=== PATIENT | male | born 1985 | race Caucasian/White ===

== ENCOUNTER → 2018-10-04 12:03 | Outpatient (CLI) | payer OTHER, BC, SELFPAY | PROVIDERS: PCP Internal Medicine Adolescent Medicine; Visit Provider Nurse Practitioner Family | DX: Z02.4 Encounter for examination for driving license (principal) ==

== ENCOUNTER → 2018-10-05 09:43 | Outpatient (CLI) | payer SELFPAY | PROVIDERS: Visit Provider Physician Assistant ==

== ENCOUNTER → 2019-08-29 08:12 | Outpatient (CLI) | payer BC, SELFPAY ==
[2019-08-29 08:57] LABS: Basophils % 0.7 % (0.1-2.0); Eosinophils # 0.2 K/mm3 (0.0-0.4); Eosinophils % 4.9 % (0.1-12.0); Hematocrit 45.1 % (42.0-52.0); Hemoglobin 15.2 g/dL (14.1-18.0); Lymphocytes # 1.2 K/mm3 (0.7-4.5); Lymphocytes % 26.9 % (10-50); Mean Corpuscular HGB Conc 33.7 g/dL (31.8-35.4); Mean Corpuscular Hemoglobin 30.5 pg (27.0-31.2); Mean Corpuscular Volume 90.6 fl (80-94); Mean Platelet Volume 7.7 fl (7.4-10.4); Monocytes # 0.3 K/mm3 (0.1-1.0); Monocytes % 7.5 % (1.7-9.3); Neutrophils # 2.8 K/mm3 (1.8-7.8); Neutrophils % 60.1 % (37.0-80.0); Platelet Count 262 K/mm3 (142-424); Red Blood Count 4.97 M/mm3 (4.60-6.20); White Blood Count 4.6 K/mm3 (4.8-10.8)
[2019-08-29 09:07] LABS: Hemoglobin A1C 5.8 % (0.0-7.0)
[2019-08-29 09:30] LABS: Alanine Aminotransferase 56 U/L (12-78); Albumin Level 4.2 gm/dL (3.4-5.0); Albumin/Globulin Ratio 1.2 (1.1-1.8); Alkaline Phosphatase 97 U/L (46-116); Anion Gap 9.1 mEq/L (5-15); Aspartate Amino Transferase 32 U/L (15-37); Bilirubin,Total 0.4 mg/dL (0.2-1.0); Blood Urea Nitrogen 10 mg/dL (7-18); Carbon Dioxide 28 mmol/L (21.0-32.0); Chloride 104 mmol/L (98-107); Chol/HDL Ratio 5.9 (1-3.5); Cholesterol 202 mg/dL (140-200); Creatinine,Serum 1.07 mg/dL (0.70-1.30); Estimated Glomerular Filt Rate 80 ml/min (>60); GFR (African American) 96 ML/MIN (>60); Globulin 3.4 gm/dl (1.3-3.2); Glucose 105 mg/dL (74-106); HDL Cholesterol 34 mg/dL (27-67); LDL Cholesterol 140 mg/dL (0-130); Potassium 4.1 mmoL/L (3.5-5.1); Sodium 137 mmol/L (136-145); Thyroid Stimulating Hormone 0.87 uIU/ml (0.358-3.740); Total Protein,Serum 7.6 gm/dL (6.4-8.2); Triglycerides 138 mg/dL (30-200); Uric Acid 6.4 mg/dL (2.6-7.2); VLDL Cholesterol 28 mg/dL (0-40)
[2019-08-29 09:31] LABS: C-Reactive Protein < 0.2 mg/dL (0.0-0.9)
[2019-08-29 09:48] LABS: Erythrocyte Sedimentation Rate 10 mm/hr (0-15)
[2019-08-30 18:13] LABS: RA Latex Turbid. <10.0 IU/mL (0.0-13.9)
[2019-08-31 21:50] LABS: Anti-Cyclic Citrullinated Pept 13 units (0-19)
[2019-09-01 13:56] LABS: Antinuclear Antibodies, IFA Positive (.)
== END ==
PROVIDERS: Visit Provider Nurse Practitioner Family
DX: I10 Essential (primary) hypertension (principal); R63.5 Abnormal weight gain; M25.542 Pain in joints of left hand
CPT/HCPCS: 36415; 80053; 80061; 83036; 84443; 84550; 85025; 85651; 86038; 86140; 86200; 86431

== ENCOUNTER → 2020-08-13 10:59 | Outpatient (CLI) | payer BC, SELFPAY ==
--- NOTE | 2020-08-13 11:08 | MR_ITS ---
PROCEDURE: MR LUMBAR SPINE WO CON CLINICAL INDICATION: LUMBAR PAIN Low back pain with tingling and numbness down left leg COMPARISON: MR MANUFA[employer]ING [employer]PERVIS[employer] 2ND SHIFT/O MRI-L-SPINE W/O from 10/30/2014 CT ABDPELW/O CT ABD PELVIS W/O CONTRAST from 09/14/2015 TECHNIQUE: Standard multiplanar multiecho sequences are performed without contrast. 3-D MIP and myelographic images are also rendered and reviewed FINDINGS: There is normal alignment. The spinal cord ends at the L1-L2 level. L1-L2 has an unremarkable appearance. L2-L3 and L3-L4 show mild facet and ligamentum hypertrophy. L4-5: There is minimal bulging disc slightly eccentric toward the left along with facet and ligamentum hypertrophy with mild left lateral recess and foraminal narrowing not significantly changed. L5-S1: There is a small left paracentral disc protrusion versus small disc osteophyte complex. This is causing left-sided lateral recess narrowing and is impinging upon the left S1 nerve root and has enlarged since the previous exam. IMPRESSION: 1. L4-5: There is minimal bulging disc slightly eccentric toward the left along with facet and ligamentum hypertrophy with mild left lateral recess and foraminal narrowing not significantly changed. 2. L5-S1: There is a small left paracentral disc protrusion versus small disc osteophyte complex. This is causing left-sided lateral recess narrowing and is impinging upon the left S1 nerve root and has enlarged since the previous exam Dictated by: Piotr Thompson MD 08/14/2020 12:57 Piotr Thompson MD in [place] 08/14/2020 12:57
== END ==
PROVIDERS: PCP Internal Medicine Adolescent Medicine; Visit Provider Orthopaedic Surgery
DX: M54.5 Low back pain (principal)
CPT/HCPCS: 72148; 76376

== ENCOUNTER 2020-08-22 15:37 | Emergency (ER) | payer BC, SELFPAY ==
[2020-08-22 15:45] VITALS: BP 141/105; PULSE 96; RESP 20; TEMP 37; O2SAT 97; BMI 33.1
--- NOTE | 2020-08-22 16:11 | HMH.EDUTC ---
[facility] [place] Disposition Clinical Impression: Left chest pressure Disposition: Still a Patient Condition on Discharge: Good Additional Instructions: sent to ed for eval report to earl Referrals: Sawyer Oh MD [Primary Care Provider] - Time of Disposition: 16:18 Medical Decision Making - Wan Inquiry Pt receiving controlled substance: No Vital Signs: 08/22/20 15:45 Temperature 98.6 F Temperature Source Oral Pulse Rate [Right Brachial] 96 H Respiratory Rate 20 Blood Pressure [Right Arm] 141/105 H Blood Pressure Mean [Right Arm] 117 Blood Pressure Source [Right Arm] Automatic Cuff Blood Pressure Position [Right Arm] Sitting 02 Sat by Pulse Oximetry 97 Oxygen Delivery Method Room Air [facility] [place] HPI - General Chief complaint: Urgent Treatment Center Stated complaint: Hurts all over,fever,cough Time Seen by Provider: 08/22/20 16:11 Mode of Arrival: Ambulatory Source of Information: Patient Limitations: No Limitations Description of Symptoms (Recalled from Triage Doc. by RN): PATIENT C/O BODY ACHES, NAUSEA, CHEST CONGESTION, COUGH, SOA, VOMITING AND FEVER THAT STARTED APPROX 0400 THIS AM. HEENT Symptoms (Recalled from RN notes): Yes Resp Symptoms (Recalled from RN notes): Yes Skin Symptoms (Recalled from RN notes): No MS Symptoms (Recalled from RN notes): Yes Functional Status (Recalled from RN notes): WNL - History of Present Illness Provider Complaint: 35 yr old male presents for soa, vomiting, feels someone or thing is pushing in on the left side of his chest not letting him breath that is worse if he gets up and moves around. Pt states he woke up at 4 am with aching all over and then layed back down and got up at 10 with the aches and felling bad, pt states he thought he needed to get something to eat and came to town to eat. On the way back home he began to sweat heavy and had to door puller to throw up. 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 Pt states when he got home he continued to feel bad and decided to come get checked out. Pt states no chest pain just pressure on the left side that makes him feel he cant take a breath. - Related Data Home Medications Medication Instructions Recorded Confirmed fluoxetine 10 mg capsule 10 mg PO DAILY #30 cap 09/25/19 08/22/20 meloxicam 7.5 mg tablet 7.5 mg PO DAILY #30 tab 09/25/19 08/22/20 propranolol 20 mg tablet 20 mg PO DAILY #90 tab 09/25/19 08/22/20 Gabapentin [Gabapentin 300mg Cap] 300 mg PO BID 08/22/20 08/22/20 Allergies Allergy/AdvReac Type Severity Reaction Status Date / Time amoxicillin [AMOXICILLIN] Allergy Mild Verified 08/22/20 15:59 - Worker's Comp Is this a Worker's Comp case?: No [facility] History - Hepatitis A Screen Drug use history?: No High risk sexual behaviors?: No History of sexually transmitted infection?: No Currently employed?: No Childcare worker?: No Do you have indoor plumbing?: Yes Do you have electricity?: Yes Attestation statement:: This patient has been screened for Hepatitis A risk factors. I have reviewed the patient's past medical history: Yes Other Surgeries: Yes: Appendectomy, Cholecystectomy Amputation: No Fractures: No Comment: Jaw, finger - Social History Smoking Status: Never smoker Alcohol Intake: never Substance Use Type: denies use Occupational Status: other Family Hx:: No significant family history ROS Obtained: Yes Systems reviewed as appropriate & no additional complaints - Constitutional Constitutional: Reports system reviewed and no additional complaints, except as docu, Reports body ache, Reports fatigue, Reports fever(s) - Eyes Eyes: Reports system reviewed and no additional complaints, except as docu, Reports itchy eyes - ENT Ears, Nose, Mouth, and Throat: Reports system reviewed and no additional complaints, except as docu, Denies nasal discharge, Denies sore throat - [facility]
[2020-08-22 16:15] VITALS: BP 160/112; PULSE 91; RESP 16; TEMP 37.4; O2SAT 97; BMI 33.1
--- NOTE | 2020-08-22 16:23 | HMH.EDGENADL ---
ED Disposition Clinical Impression: Viral upper respiratory infection, Atypical chest pain Disposition: Home, Self-Care Condition on Discharge: Good Instructions: DI for Viral Upper Respiratory Infection -- Adult, DI for Atypical Chest Pain Additional Instructions: Call back to the emergency department in 4 hrs to obtain your COVID-19 test result. Quarantine yourself until you obtain your result. Tylenol or ibuprofen for discomfort and fever. Additional instructions for UPPER RESPIRATORY INFECTION: See your physician if not improving in 3-4 days or if worsening. Rest and drink plenty of fluids. Return immediately if you have an uncontrollable fever greater than 104 degrees, difficulty breathing or shortness of breath, persistent vomiting, or inability to swallow. Referrals: Sawyer Oh MD [Primary Care Provider] - - Critical Care Critical Care Time: No Attestation: On 08/22/20, the high probability of a clinically significant, sudden or life threatening deterioration of the following system(s) required my full and direct attention, intervention and personal management. The time I documented below is in addition to time spent performing reported procedures but includes the following listed in this critical care notation. Medical Decision Making - Wan Inquiry Pt receiving controlled substance: No Vital Signs: 08/22/20 15:45 08/22/20 16:15 Temperature 98.6 F 99.3 F Temperature Source Oral Oral Pulse Rate [Right Brachial] 96 H 91 H Respiratory Rate 20 16 Blood Pressure [Right Arm] 141/105 H 160/112 H Blood Pressure Mean [Right Arm] 117 128 Blood Pressure Source [Right Arm] Automatic Cuff Automatic Cuff Blood Pressure Position [Right Arm] Sitting Sitting 02 Sat by Pulse Oximetry 97 97 Oxygen Delivery Method Room Air Room Air - Lab Data Lab Results 08/22/20 16:33: WBC 5.1, RBC 5.28, Hgb 16.2, Hct 48.3, MCV 91.5, MCH 30.7, MCHC 33.6, RDW 13.3, Plt Count 212, MPV 8.3, Neut % (Auto) 75.3, Lymph % (Auto) 11.7, [place] % (Auto) 9.8 H, Eos % (Auto) 2.5, Baso % (Auto) 0.7, Neut # (Auto) 3.9, Lymph # (Auto) 0.6 L, [place] # (Auto) 0.5, Eos # (Auto) 0.1, Baso # (Auto) 0.0 08/22/20 16:33: Sodium 137, Potassium 4.1, Chloride 101, Carbon Dioxide 27, Anion Gap 13.1, BUN 16, Creatinine 1.00, Estimated Creat Clear 146, Estimated GFR 86, Est GFR ( Amer) 103, Glucose 99, Calcium 9.6, Total Bilirubin 0.4, Direct Bilirubin 0.1, Conjugated Bilirubin 0.0, Indirect Bilirubin 0.3, Unconjugated Bilirubin 0.2, AST 51, ALT 77, Alkaline Phosphatase 76, Troponin I < 0.01, Total Protein 8.2, Albumin 4.9, Amylase 50, Lipase 109 Result diagrams: 08/22/20 16:33 08/22/20 16:33 Orders (Tests/Meds): ORDERS Category Date Time Status Chest XR 2 view (NOT portable) [XR chest 2V] Stat Exams 08/22/20 16:26 Taken Full Resp Panel w/COVID ([facility]) Routine Lab 08/22/20 17:23 Ordered Troponin I Q3H Lab 08/22/20 19:30 Ordered Troponin I Q3H Lab 08/22/20 22:30 Ordered - ECG Data Tracing #1 EKG interpreted by Florian Bailey MD: Rhythm: sinus Rate: 87 [place]: normal Ectopy: none Conduction: normal ST Segment Changes: none T Wave Changes: none Q Waves: none No evidence of acute ischemia or injury Normal electrocardiogram - MATT Score for Non-Stemi Age of Patient: 30-39 years old Heart Rate: 90-109 bpm Systolic Blood Pressure: 140-159 mmHg Serum Creatinine: 0.80-1.19 mg/dl CHF [place] Class: I-No CHF Other Risk Factors: None Non-Stemi Risk Score: 54 General Adult HPI - General Chief complaint: Urgent Treatment Center Stated complaint: Hurts all over,fever,cough Time Seen by Provider: 08/22/20 16:11 Mode of Arrival: Ambulatory Source of Information: Patient Limitations: No Limitations Description of Symptoms (Recalled from ER Triage Doc. by RN): PATIENT C/O BODY ACHES, NAUSEA, CHEST CONGESTION, COUGH, SOA, VOMITING AND FEVER THAT STARTED APPROX 0400 THIS AM. - History of Present Illness HPI narrative:
--- NOTE | 2020-08-22 16:26 | ECG_ITS ---
APPROVED REPORT Exam: Resting ECG HR:87 bpm ECG Measurements Heart Rate 87 AXES MA 144 P 55 QRSd 82 QRS 33 QT 342 T 26 QTc 411 Conclusion Normal sinus rhythm Normal ECG Electronically signed by : Kevin Camilo, 08/24/2020 17:32:36
--- NOTE | 2020-08-22 16:26 | XR_ITS ---
PROCEDURE: XR CHEST 2V Referring Doctor: Florian Bailey Patient Age:35Y CLINICAL HISTORY: pain under L breast area chest pain COMPARISON: CR CXR CHEST(2 VIEWS-NOT PORTABLE) from 06/09/2016 FINDINGS: Today's PA and lateral chest is compared to 06/09/2016 two-view CXR. No interval change. No acute findings The lungs are well expanded and clear with no active disease. No pneumothorax no pleural effusion. No infiltrate. No mass lesion or pulmonary nodule. Chest wall and T-spine appear stable and intact. The heart is normal in size with normal pulmonary vascularity. [place] and mediastinal structures appears satisfactory and stable. Clips right upper quadrant likely from prior cholecystectomy Cardiomediastinal silhouette and pulmonary vascularity are within normal limits. The lungs are clear without infiltrates, suspicious nodules, or pleural effusions. No acute bony abnormalities. IMPRESSION: No acute findings. Lungs clear. Stable chest Dictated by: Ricky Morin MD 08/22/2020 22:50 Ricky Morin MD in [place] 08/22/2020 22:50
--- NOTE | 2020-08-22 16:36 | PC.NURSE ---
pt to xray
[2020-08-22 16:49] LABS: Basophils % 0.7 % (0.1-2.0); Eosinophils # 0.1 K/mm3 (0.0-0.4); Eosinophils % 2.5 % (0.1-12.0); Hematocrit 48.3 % (42.0-52.0); Hemoglobin 16.2 g/dL (14.1-18.0); Lymphocytes # 0.6 K/mm3 (0.7-4.5); Lymphocytes % 11.7 % (10-50); Mean Corpuscular HGB Conc 33.6 g/dL (31.8-35.4); Mean Corpuscular Hemoglobin 30.7 pg (27.0-31.2); Mean Corpuscular Volume 91.5 fl (80-94); Mean Platelet Volume 8.3 fl (7.4-10.4); Monocytes # 0.5 K/mm3 (0.1-1.0); Monocytes % 9.8 % (1.7-9.3); Neutrophils # 3.9 K/mm3 (1.8-7.8); Neutrophils % 75.3 % (37.0-80.0); Platelet Count 212 K/mm3 (142-424); Red Blood Count 5.28 M/mm3 (4.60-6.20); Red Cell Distribution Width 13.3 % (11.5-17.5); White Blood Count 5.1 K/mm3 (4.8-10.8)
[2020-08-22 16:55] LABS: Chloride 101 mmol/L (98-107); Sodium 137 mmol/L (136-145)
[2020-08-22 16:56] LABS: Potassium 4.1 mmoL/L (3.5-5.1)
[2020-08-22 16:58] LABS: Amylase 50 U/L (30-110); Anion Gap 13.1 mEq/L (5-15); Bilirubin,Unconjugated 0.2 mg/dL (0.0-1.1); Blood Urea Nitrogen 16 mg/dl (9-20); Carbon Dioxide 27 mmol/L (22.0-30.0); Creatinine Clearance Estimated 146 mL/min (50-200); Estimated Glomerular Filt Rate 86 ml/min (>60); GFR (African American) 103 ML/MIN (>60)
[2020-08-22 16:59] LABS: Alanine Aminotransferase 77 U/L (12-78); Albumin Level 4.9 g/dl (3.5-5.0); Alkaline Phosphatase 76 U/L (38-126); Aspartate Amino Transferase 51 U/L (17-59); Bilirubin,Direct 0.1 mg/dl (0.0-0.4); Bilirubin,Indirect 0.3 mg/dL (0.0-0.9); Bilirubin,Total 0.4 mg/dl (0.2-1.3); Calcium 9.6 mg/dl (8.4-10.2); Glucose 99 mg/dl (74-100); Lipase 109 U/L (23-300); Total Protein,Serum 8.2 g/dl (6.3-8.2)
[2020-08-22 17:13] LABS: Troponin I < 0.01 ng/ml (0.00-0.034)
[2020-08-22 17:36] VITALS: BP 158/100; PULSE 82; RESP 16; O2SAT 100
[2020-08-22 18:02] VITALS: BP 158/100; PULSE 82; RESP 16; TEMP 37.4; O2SAT 100
== END 2020-08-22 18:02 | disposition home or self-care (01) ==
LOC: UTC 15:45 → ER 16:10
PROVIDERS: Emergency Provider Emergency Medicine; PCP Internal Medicine Adolescent Medicine
DX: U07.1 COVID-19 (principal); Z90.49 Acquired absence of other specified parts of digestive tract
CPT/HCPCS: 71046; 80048; 80076; 82150; 83690; 84484; 85025; 93005; 99283; U0003

== ENCOUNTER → 2021-03-25 10:49 | Outpatient (CLI) | payer BC, SELFPAY ==
[2021-03-25 11:33] LABS: Basophils % 0.8 % (0.1-2.0); Eosinophils # 0.1 K/mm3 (0.0-0.4); Hematocrit 45.1 % (42.0-52.0); Hemoglobin 15.5 g/dL (14.1-18.0); Lymphocytes # 1.8 K/mm3 (0.7-4.5); Lymphocytes % 32.4 % (10-50); Mean Corpuscular HGB Conc 34.5 g/dL (31.8-35.4); Mean Corpuscular Hemoglobin 29.9 pg (27.0-31.2); Mean Corpuscular Volume 86.9 fl (80-94); Mean Platelet Volume 7.3 fl (7.4-10.4); Monocytes # 0.3 K/mm3 (0.1-1.0); Monocytes % 6.1 % (1.7-9.3); Neutrophils # 3.3 K/mm3 (1.8-7.8); Neutrophils % 58.7 % (37.0-80.0); Platelet Count 286 K/mm3 (142-424); Red Blood Count 5.18 M/mm3 (4.60-6.20); Red Cell Distribution Width 13.1 % (11.5-17.5); White Blood Count 5.6 K/mm3 (4.8-10.8)
[2021-03-25 12:17] LABS: Chloride 101 mmol/L (98-107)
[2021-03-25 12:18] LABS: Potassium 4.8 mmoL/L (3.5-5.1); Sodium 138 mmol/L (136-145)
[2021-03-25 12:20] LABS: Alanine Aminotransferase 63 U/L (12-78); Alkaline Phosphatase 77 U/L (38-126); Aspartate Amino Transferase 42 U/L (17-59); Bilirubin,Total 0.6 mg/dl (0.2-1.3); Blood Urea Nitrogen 15 mg/dl (9-20); Estimated Glomerular Filt Rate 97 ml/min (>60); GFR (African American) 117 ML/MIN (>60)
[2021-03-25 12:21] LABS: Albumin/Globulin Ratio 1.7 (1.1-1.8); Anion Gap 14.8 mEq/L (5-15); Calcium 9.5 mg/dl (8.4-10.2); Carbon Dioxide 27 mmol/L (22.0-30.0); Chol/HDL Ratio 6.1 (1-3.5); Cholesterol 218 mg/dl (140-200); Globulin 2.9 g/dL (1.3-3.2); Glucose 94 mg/dl (74-100); HDL Cholesterol 36 mg/dl (40-60); Total Protein,Serum 7.9 g/dl (6.3-8.2); Triglycerides 230 mg/dl (30-150); VLDL Cholesterol 46 mg/dL (0-40)
[2021-03-25 12:32] LABS: Direct LDL Cholesterol 130.05 mg/dL (100-129)
[2021-03-25 12:38] LABS: 25-OH Vitamin D, Total 27.8 ng/mL (30-100)
[2021-03-25 14:02] LABS: Vitamin B12 344 pg/mL (239-931)
== END ==
PROVIDERS: Visit Provider Nurse Practitioner Family
DX: Z00.00 Encounter for general adult medical examination without abnormal findings (principal); I10 Essential (primary) hypertension; R53.83 Other fatigue; E55.9 Vitamin D deficiency, unspecified
CPT/HCPCS: 36415; 80053; 80061; 82306; 82607; 85025

== ENCOUNTER → 2021-09-23 17:01 | Outpatient (CLI) | payer BC, SELFPAY | PROVIDERS: PCP Internal Medicine Adolescent Medicine; Visit Provider Nurse Practitioner Family | DX: Z20.822 Contact with and (suspected) exposure to COVID-19 (principal) | CPT/HCPCS: C9803; U0003; U0005 ==

== ENCOUNTER → 2021-10-28 15:46 | Outpatient (CLI) | payer BC, SELFPAY | PROVIDERS: Visit Provider Nurse Practitioner | DX: U07.1 COVID-19 (principal) | CPT/HCPCS: C9803; U0003; U0005 ==

== ENCOUNTER → 2022-04-06 08:19 | Outpatient (CLI) | payer BC, SELFPAY ==
--- NOTE | 2022-04-06 08:24 | XR_ITS ---
FINAL REPORT CLINICAL HISTORY: HEARING SOMETHING IN LUNGS COMPARISON: August 22, 2020 FINDINGS: Two views of the chest were obtained. The heart size and pulmonary vascularity are within normal limits. The mediastinum is normal. No acute pulmonary abnormality is identified. There is no pneumothorax. The bony thorax is intact. IMPRESSION: No active cardiopulmonary disease. Reviewed, Interpreted and Dictated by Silver Gonzalez III, MD Transcribed by Denise Avendano Authenticated and [facility]
== END ==
PROVIDERS: PCP Internal Medicine Adolescent Medicine; Visit Provider Nurse Practitioner Adult Health
DX: R09.89 Other specified symptoms and signs involving the circulatory and respiratory systems (principal)
CPT/HCPCS: 71046

== ENCOUNTER 2023-10-12 14:34 | Emergency (ER) | payer SELFPAY ==
[2023-10-12] VITALS (11 sets, daily range): BP systolic 143–173; BP diastolic 98–132; PULSE 78–127; RESP 13–16; TEMP 37; O2SAT 98–100; BMI 29.4
--- NOTE | 2023-10-12 14:33 | ECG_ITS ---
APPROVED REPORT Exam: Resting ECG HR:127 bpm ECG Measurements Heart Rate 127 AXES PA 120 P 68 QRSd 91 QRS 66 QT 290 T 42 QTc 365 Conclusion SINUS TACHYCARDIA NONSPECIFIC ST & T-WAVE ABNORMALITY ABNORMAL RHYTHM ECG UNCONFIRMED REPORT Electronically signed by : Sawyer Oh MD 10/13/2023 08:44:04
--- NOTE | 2023-10-12 14:37 | HMH.EDGENADL ---
Discharge Plan Disposition Chief Complaint: Chest Pain Prescriptions Prescriptions: No Action meloxicam 7.5 mg tablet 7.5 mg PO DAILY Qty: 30 propranolol 20 mg tablet 20 mg PO DAILY Qty: 90 fluoxetine 10 mg capsule 20 mg PO DAILY Qty: 30 gabapentin 300 MG capsule 300 mg PO BID Discharge ED Provider: Wily Rubio Adult HPI General Chief complaint: Chest Pain Stated complaint: chest pain Time Seen by Provider: 10/12/23 14:37 History of Present Illness HPI narrative: Patient presents with multiple complaints, include chest pain, headache, blurry vision, symptoms started last night, initially noted frontal mild headache, developed blurry vision, no diplopia, does note migraine history. Symptoms were not maximal in onset, no trauma, previous therapies include [id number] analgesia with moderate improvement of symptoms. Notes history of hypertension with discontinuation of antihypertensive due to weight loss and improvement of blood pressure. He subsequently developed substernal chest pain that radiates to his left arm, nonpleuritic, nonexertional, has not had similar symptoms before. Pain is described as pressure. Denies any fevers or chills or nausea or vomiting. Notes hypertension upon arrival to the emergency department as well as earlier today. Related Data Home Medications Medication Instructions Recorded Confirmed meloxicam 7.5 mg tablet 7.5 mg PO DAILY BACK PAIN #30 tabs 09/25/19 09/14/20 propranolol 20 mg tablet 20 mg PO DAILY Hypertension #90 09/25/19 09/14/20 tabs gabapentin 300 mg capsule 300 mg PO BID BACK PAIN 08/22/20 09/14/20 fluoxetine 10 mg capsule 20 mg PO DAILY ANXIETY/DEPRESSION 09/14/20 09/14/20 #30 caps Allergies Allergy/AdvReac Type Severity Reaction Status Date / Time amoxicillin [AMOXICILLIN] Allergy Mild Verified 09/14/20 13:28 [facility] Disclaimer: The information contained in this section may have been updated after the patient was seen, as this information can be updated by other users. Social History Smoking Status: Never smoker alcohol intake: never substance use type: denies use current occupational status: other Travel in the last 8 weeks: None ROS Obtained: Yes Systems reviewed as appropriate & no additional complaints except as documented As per HPI Physical Exam General General appearance: alert and in no apparent distress Head Head exam: atraumatic and normocephalic Eye Eye exam: Present normal appearance and other (Visual acuity grossly within normal limits, extraocular movements intact, pupils equal and reactive) Neck Neck exam: Present normal inspection Chest Chest inspection: Present normal inspection and symmetric chest wall rise Respiratory Respiratory exam: Present normal lung sounds bilaterally; Absent respiratory distress Cardiovascular Cardiovascular exam: Present regular rate and normal rhythm Abdominal Exam Abdominal exam: Present soft Neurological Exam Neurological exam: Present alert, oriented X3 and CN II-XII intact Psychiatric Psychiatric exam: Present normal affect and normal mood Skin Skin exam: Present warm and dry Medical Decision Making Medical Records Medical records reviewed: Yes I reviewed the patient's medical records. Wan Inquiry Pt receiving controlled substance: No Vital Signs: 10/12/23 14:35 10/12/23 14:44 10/12/23 14:56 Temperature 98.6 F Temperature Source Oral Pulse Rate 127 H 99 H Pulse Rate [Right] 120 H Respiratory Rate 14 Blood Pressure 168/107 H Blood Pressure [Right Arm] 173/103 H Blood Pressure Mean 126 Blood Pressure Mean [Right Arm] 126 Blood Pressure Source [Right Arm] Automatic Cuff 02 Sat by Pulse Oximetry 100 100 Oxygen Delivery Method Room Air Room Air 10/12/23 15:00 10/12/23 15:30 10/12/23 16:01 Temperature Temperature Source Pulse Rate 92 H 84 86 Pulse Rate [Right] Respiratory Rate 15 16 Blood Pressure 167/105 H 171/132 H 168/103 H Blood Pressure [Right Arm] Blood Pressure Mean 125 139 134 Blood Pressure Mean [Right Arm] Blood Pressure Source [Right Arm] 02 Sat by Pulse Oximetry 100 98 98 Oxygen Delivery Method Room Air Room Air Room Air Lab Data Lab Results 10/12/23 14:35: WBC 8.2, RBC 5.20, Hgb 15.7, Hct 44.9, MCV 86.3, MCH 30.2, MCHC 35.0, RDW 13.2, Plt Count 255, MPV 7.6, Neut % (Auto) 66.6, Lymph % (Auto) 24.5, [place] % (Auto) 7.2, Eos % (Auto) 1.2, Baso % (Auto) 0.5, Neut # (Auto) 5.5, Lymph # (Auto) 2.0, [place] # (Auto) 0.6, Eos # (Auto) 0.1, Baso # (Auto) 0.0, Sodium 140, Potassium 3.6, Chloride 103, Carbon Dioxide 27, Anion Gap 13.6, BUN 12, Creatinine 1.10, Estimated Creat Clear 121, Estimated GFR 75, Est GFR ( Amer) 91, Glucose 119 H, Calcium 9.3, Total Bilirubin 0.4, AST 41, ALT 48, Alkaline Phosphatase 76, Troponin I < 0.01, Total Protein 7.8, Albumin 4.7, Globulin 3.1, Albumin/Globulin Ratio 1.5, TSH 2.33, Free T4 1.44 10/12/23 15:51: Urine Color Yellow, Urine Appearance Clear, Urine pH 6.5, Ur Specific Gar[place] <= 1.005, Urine Protein Negative, Urine Glucose (UA) Negative, Urine Ketones Negative, Urine Blood Negative, Urine Nitrate Negative, Urine Bilirubin Negative, Urine Urobilinogen 0.2, Ur Leukocyte Esterase Negative, Urine RBC None, Urine WBC None, Ur Squamous Epith Cells Occasional, Urine Bacteria None 10/12/23 14:35 10/12/23 14:35 Orders (Tests/Meds): ED MEDICATIONS Generic Name Dose Route Start Last Admin Trade Name Frebrayan PRN Reason Stop Dose Admin Nitroglycerin 0.4 mg 10/12/23 14:45 Nitroglycerin 0.4mg Sl Tablet SL 11/11/23 14:44 [id number] PRN Chest Pain Discontinued Medications Generic Name Dose Route Start Last Admin Trade Name Freq PRN Reason Stop Dose Admin Aspirin 325 mg 10/12/23 14:45 10/12/23 14:55 Aspirin 325mg Tablet PO 10/12/23 14:46 325 mg ONCE ONE Administration Dexamethasone 8 mg 10/12/23 16:25 10/12/23 16:34 Dexamethasone 4mg Tablet PO 10/12/23 16:26 8 mg ONCE ONE Administration Diphenhydramine HCl 25 mg 10/12/23 16:25 10/12/23 16:34 Diphenhydramine 25mg Capsule PO 10/12/23 16:26 25 mg ONCE ONE Administration Hydralazine HCl 5 mg 10/12/23 16:25 10/12/23 16:33 Hydralazine 20mg/Ml Vial IV 10/12/23 16:26 5 mg ONCE ONE Administration Lactated Ringer's 1,000 mls @ 999 mls/hr 10/12/23 14:45 10/12/23 14:55 Lactated Ringer's 1000 Ml Bag IV 10/12/23 15:45 999 mls/hr .Q1H1M ONE Administration Ketorolac Tromethamine 15 mg 10/12/23 16:25 10/12/23 16:34 Ketorolac 30mg/Ml Vial IV 10/12/23 16:26 15 mg ONCE ONE Administration Prochlorperazine Maleate 10 mg 10/12/23 16:25 10/12/23 16:34 Prochlorperazine 10mg Tablet PO 10/12/23 16:26 10 mg ONCE ONE Administration ORDERS Category Date Time Status CT head/brain wo con Stat Cat Scan 10/12/23 14:47 Completed XR chest 2V Stat Exams 10/12/23 14:45 Completed CBC w/Auto Diff [Complete Blood Count Auto Diff] Stat Lab 10/12/23 14:35 Completed CMP [Comprehensive Metabolic Panel] Stat Lab 10/12/23 14:35 Completed Free T4 (Free Thyroxine) Stat Lab 10/12/23 14:35 Completed TSH [Thyroid Stimulating Hormone] Stat Lab 10/12/23 14:35 Completed Troponin I Q2H Lab 10/12/23 14:35 Completed Troponin I Q2H Lab 10/12/23 18:45 Ordered Troponin I Q2H Lab 10/12/23 20:45 Ordered Urinalysis and Microscopic Stat Lab 10/12/23 15:51 Completed ECG initial Besson Routine Y 10/12/23 14:33 Completed HEART Score History (anamnesis): Moderately suspicious ECG: Normal Age: <45 years Risk factors: No known risk factors Troponin: </= normal limit HEART Score: 1 Medical Decision Narrative: Patient with history and exam per above presenting for evaluation of chest pain, headache, blurry vision Diagnoses considered include hypertensive emergency, subarachnoid hemorrhage, venous sinus thrombosis, ACS, PE, pneumonia ED workup and treatment included: CBC, CMP, troponins, EKG, CT head, urinalysis Patient treated with dexamethasone, Benadryl, Compazine, Toradol, hydralazine 5 mg IV x 1, LR bolus, aspirin load, nitroglycerin Labs were independently interpreted by me, significant for no acute findings, troponin within normal limits Imaging is pending at this time Symptoms at this time are thought to be most consistent with hypertensive urgency versus migraine with aura Care was transferred to incoming physician Dr. Ling Critical Care Critical Care Time Critical Care Time: No
--- NOTE | 2023-10-12 14:45 | XR_ITS ---
FINAL REPORT TECHNIQUE: Chest PA & Lateral CLINICAL HISTORY: chest pain, htn COMPARISON: 04/06/2022 FINDINGS: 2 views of the chest were performed. The heart size is normal. The mediastinum is within normal limits. There is no acute cardiopulmonary process. There are no pleural effusions. There is no pneumothorax. The bony thorax appears intact. IMPRESSION: No acute cardiopulmonary process. Reviewed, Interpreted and Dictated by Max Montiel MD Transcribed by Denise Avendano Authenticated and [facility]
--- NOTE | 2023-10-12 14:47 | CT_ITS ---
FINAL REPORT TECHNIQUE: Axial CT images were performed through the head. Coronal reformatted images were submitted. This study was performed with techniques to keep radiation doses as low as reasonably achievable (ALARA). Individualized dose reduction techniques using automated exposure control or adjustment of mA and/or kV according to the patient's size were employed. CLINICAL HISTORY: HTN, LOZA, vision changes COMPARISON: None FINDINGS: The ventricles are normal in size. There is no evidence of hemorrhage. There is no mass or edema identified. There is no abnormal extra-axial fluid seen. There is mucoperiosteal thickening in the sphenoid sinus consistent with chronic sphenoid sinusitis. IMPRESSION: No acute intracranial process. Chronic sphenoid sinusitis. Reviewed, Interpreted and Dictated by Max Montiel MD Transcribed by Denise Avendano Authenticated and [facility]
[2023-10-12] MEDS: ASPIRIN 325MG TABLET 325 MG PO (14:55)
[2023-10-12] MEDS: LACTATED RINGERS 1000ML 1,000 ML 999 ML IV (14:55)
[2023-10-12 14:58] LABS: Chloride 103 mmol/L (98-107); Sodium 140 mmol/L (136-145)
[2023-10-12 14:59] LABS: Potassium 3.6 mmoL/L (3.5-5.1)
[2023-10-12 15:00] LABS: Basophils % 0.5 % (0.1-2.0); Eosinophils # 0.1 K/mm3 (0.0-0.4); Eosinophils % 1.2 % (0.1-12.0); Hematocrit 44.9 % (42.0-52.0); Hemoglobin 15.7 g/dL (14.1-18.0); Lymphocytes % 24.5 % (10-50); Mean Corpuscular Hemoglobin 30.2 pg (27.0-31.2); Mean Corpuscular Volume 86.3 fl (80-94); Mean Platelet Volume 7.6 fl (7.4-10.4); Monocytes # 0.6 K/mm3 (0.1-1.0); Monocytes % 7.2 % (1.7-9.3); Neutrophils # 5.5 K/mm3 (1.8-7.8); Neutrophils % 66.6 % (37.0-80.0); Platelet Count 255 K/mm3 (142-424); Red Cell Distribution Width 13.2 % (11.5-17.5); White Blood Count 8.2 K/mm3 (4.8-10.8)
[2023-10-12 15:01] LABS: Alanine Aminotransferase 48 U/L (12-78); Albumin Level 4.7 g/dl (3.5-5.0); Albumin/Globulin Ratio 1.5 (1.1-1.8); Alkaline Phosphatase 76 U/L (38-126); Anion Gap 13.6 mEq/L (5-15); Aspartate Amino Transferase 41 U/L (17-59); Bilirubin,Total 0.4 mg/dl (0.2-1.3); Blood Urea Nitrogen 12 mg/dl (9-20); Carbon Dioxide 27 mmol/L (22.0-30.0); Creatinine Clearance Estimated 121 mL/min (50-200); Estimated Glomerular Filt Rate 75 ml/min (>60); GFR (African American) 91 ML/MIN (>60); Globulin 3.1 g/dL (1.3-3.2); Total Protein,Serum 7.8 g/dl (6.3-8.2)
[2023-10-12 15:02] LABS: Calcium 9.3 mg/dl (8.4-10.2); Glucose 119 mg/dl (74-100)
[2023-10-12 15:14] LABS: Troponin I < 0.01 ng/ml (0.00-0.034)
[2023-10-12 15:20] LABS: Free T4 (Free Thyroxine) 1.44 ng/dl (0.78-2.19)
[2023-10-12 15:33] LABS: Thyroid Stimulating Hormone 2.33 uIU/mL (0.465-4.68)
[2023-10-12 15:58] LABS: Microscopic, Urine URINE MICROSCOPIC (MICROSCOPIC)
[2023-10-12 16:16] LABS: Appearance,Urine CLEAR (Clear); Bilirubin,Urine Negative (Negative); Blood, Urine Negative (Negative); Color,Urine YELLOW (Yellow); Glucose,Urine (UA) Negative (Negative); Ketones,Urine Negative (Negative); Leukocyte Esterase,Urine Negative (Negative); Nitrate,Urine Negative (Negative); PH,Urine 6.5 (5.0-8.5); Protein,Urine Negative (Negative); Specific Gravity, Urine <= 1.005 (1.005-1.030); Urobilinogen,Urine 0.2 EU/dl (0.2)
[2023-10-12] MEDS: HYDRALAZINE 20MG/ML VIAL 5 MG IV (16:33)
[2023-10-12] MEDS: DEXAMETHASONE 4MG TABLET 8 MG PO (16:34)
[2023-10-12] MEDS: PROCHLORPERAZINE 10MG TABLET 10 MG PO (16:34)
[2023-10-12] MEDS: KETOROLAC 30MG/ML VIAL 15 MG IV (16:34)
[2023-10-12] MEDS: diphenhydrAMINE 25MG CAPSULE 25 MG PO (16:34)
[2023-10-12 16:44] LABS: Squamous Epithelial Cell,Urine Occasional #/hpf (0-5)
[2023-10-12 18:07] LABS: Troponin I < 0.01 ng/ml (0.00-0.034)
== END 2023-10-12 18:26 | disposition home or self-care (01) ==
PROVIDERS: Emergency Provider Emergency Medicine
DX: R07.9 Chest pain, unspecified (principal); R51.9 Headache, unspecified; H53.8 Other visual disturbances; M79.602 Pain in left arm
CPT/HCPCS: 70450; 71046; 80053; 81001; 84439; 84443; 84484; 85025; 93005; 96361; 96374; 96375; 99285

== ENCOUNTER 2024-06-10 07:31 | Outpatient (CLI) | payer BC, SELFPAY ==
--- NOTE | 2024-06-10 07:56 | MR_ITS ---
FINAL REPORT CLINICAL HISTORY: PAIN IN RIGHT SHOULDER COMPARISON: None FINDINGS: Multi planar MR imaging of the right shoulder was performed. There is thickening of the distal supraspinatus tendon consistent with tendinosis. Localized abnormal signal at the anterior insertion of the distal supraspinatus tendon is consistent with a partial insertional tear. There is no full-thickness component. There is no abnormal fluid in the subacromial/subdeltoid bursa. The anterior and posterior glenoid davy appear intact. The biceps tendon appears intact. Mild hypertrophic changes are noted of the acromioclavicular joint. The subscapularis tendon is intact. 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 Reviewed, Interpreted and Dictated by Max Montiel MD Transcribed by Denise Avendano Authenticated and [facility]
== END 2024-06-10 23:59 | disposition home or self-care (01) ==
PROVIDERS: Visit Provider Nurse Practitioner Adult Health
DX: M25.511 Pain in right shoulder (principal)
CPT/HCPCS: 73221